=== PATIENT | male | born 1990 | race Caucasian/White ===

== ENCOUNTER 2019-07-21 08:11 | Emergency (ER) | payer SELFPAY ==
[~2019-07-21] VITALS: Ht 172.7 cm; Wt 86.4 kg
[2019-07-21 08:21] VITALS: BP 122/96
== END 2019-07-21 08:30 | disposition left against medical advice (07) ==
LOC: EMS 08:14
DX: R51 Headache (principal); Z53.21 Procedure and treatment not carried out due to patient leaving prior to being seen by health care provider